=== PATIENT | female | born 1995 | race Caucasian/White ===

== ENCOUNTER → 2017-04-16 | Outpatient (CLI) | payer OTHER ==
[2017-04-16 18:56] LABS: BASO % 0.2 % (0.0-1.0); EOS % 0.3 % (0.0-3.0); HEMATOCRIT 41.3 % (36.0-47.0); HEMOGLOBIN 13.8 g/dl (12.0-16.0); IMMATURE GRANULOCYTE % 0.3 % (0-3.0); LYMPH # 1.4 10^3/uL (1.5-6.5); LYMPH % 14.1 % (24.0-44.0); MEAN CORPUSCULAR HEMOGLOBIN 32.5 pg (27.0-33.0); MEAN CORPUSCULAR HGB CONC 33.4 g/dl (32.0-36.5); MEAN CORPUSCULAR VOLUME 97.2 fl (80.0-96.0); MONO # 0.4 10^3/uL (0.0-0.8); MONO % 4.1 % (0.0-5.0); NEUTROPHILS # 7.8 10^3/uL (1.8-7.7); PLATELET COUNT, AUTOMATED 301 10^3/uL (150-450); RED BLOOD COUNT 4.25 10^6/uL (4.00-5.40); RED CELL DISTRIBUTION WIDTH 12.4 % (11.5-14.5); WHITE BLOOD COUNT 9.7 10^3/uL (4.0-10.0)
[2017-04-17 00:40] LABS: CHLAMYDIA DNA AMPLIFICATION NEGATIVE (NEGATIVE)
[2017-04-17 06:52] LABS: GC DNA AMPLIFICATION NEGATIVE (NEGATIVE)
[2017-04-17 10:38] LABS: RUBELLA IgG QUALITATIVE IMMUNE (IMMUNE)
[2017-04-17 11:04] LABS: HEPATITIS B SURFACE ANTIGEN NEGATIVE (NEGATIVE)
[2017-04-17 11:08] LABS: HEPATITIS C VIRUS ABY INDEX < 0.0 INDEX (<0.8)
[2017-04-17 11:08] LABS: HIV 1&2 SCREEN CENTAUR NEGATIVE (NEGATIVE)
== END ==
LOC: M LRY 11:40
DX: Z34.81 Encounter for supervision of other normal pregnancy, first trimester (principal); Z3A.08 8 weeks gestation of pregnancy

== ENCOUNTER → 2017-06-24 | Outpatient (CLI) | payer OTHER | LOC: M RAD 12:07 | DX: Z34.82 Encounter for supervision of other normal pregnancy, second trimester (principal); Z3A.19 19 weeks gestation of pregnancy ==

== ENCOUNTER → 2017-10-25 | Outpatient (REF) | payer OTHER | LOC: M LAB REF 11:10 | DX: Z34.83 Encounter for supervision of other normal pregnancy, third trimester (principal) ==

== ENCOUNTER → 2017-10-28 | Outpatient (REF) | payer OTHER | LOC: M LAB REF 13:12 | DX: Z34.83 Encounter for supervision of other normal pregnancy, third trimester (principal) ==

== ENCOUNTER 2017-11-22 03:06 | Inpatient (IN) | payer OTHER ==
[2017-11-22 04:01] LABS: HEMATOCRIT 36.7 % (36.0-47.0); HEMOGLOBIN 12.3 g/dl (12.0-15.5); MEAN CORPUSCULAR HEMOGLOBIN 30.7 pg (27.0-33.0); MEAN CORPUSCULAR HGB CONC 33.5 g/dl (32.0-36.5); MEAN CORPUSCULAR VOLUME 91.5 fl (80.0-96.0); PLATELET COUNT, AUTOMATED 226 10^3/uL (150-450); RED BLOOD COUNT 4.01 10^6/uL (4.00-5.40); RED CELL DISTRIBUTION WIDTH 13.5 % (11.5-14.5)
[2017-11-22] MEDS ORDERED: OXYTOCIN 30 UNITS IN 0.9% NaCl 500ML IV BAG (J2590) As Ordered (04:21)
[2017-11-22] MEDS: OXYTOCIN DRIP 30 UNITS in APPROPRIATE DILUENT 1 EA IV ×2 (08:01→09:37)
[2017-11-22] MEDS ORDERED: LR 1,000 ML IV (08:20)
[2017-11-22] MEDS ORDERED: RHOGAM 300 MCG (1500 IU) INJ (J2790) IM (08:30)
[2017-11-22] MEDS ORDERED: IBUPROFEN 800 MG TAB PO (08:30)
[2017-11-22] MEDS ORDERED: PROMETHAZINE 25 MG TAB PO (08:30)
[2017-11-22] MEDS ORDERED: DOCUSATE SODIUM 100 MG CAP PO (08:30)
[2017-11-22] MEDS ORDERED: METHYLERGONOVINE MALEATE 0.2 MG TAB PO (08:30)
[2017-11-22] MEDS ORDERED: ONDANSETRON 4MG/2ML VIAL (J2405) IV (08:30)
[2017-11-22] MEDS ORDERED: MEASLES,MUMPS,RUBELLA VACCINE INJ (MMR-II) (90707) SC (08:30)
[2017-11-22] MEDS: PRENATAL VITAMINS CHEWABLE TABLET PO (10:59)
[2017-11-22] MEDS: ACETAMINOPHEN 500 MG TAB PO (10:59)
[2017-11-22] MEDS: DIBUCAINE 1% OINTMENT 30GM TOP (10:59)
[2017-11-23] MEDS: ACETAMINOPHEN 500 MG TAB PO (00:34)
[2017-11-23] MEDS: PRENATAL VITAMINS CHEWABLE TABLET PO (09:00)
[2017-11-23] MEDS: INFLUENZA QUADRIVALENT PF VACCINE 0.5ML SYRINGE (90686) IM (09:00)
[2017-11-23] MEDS ORDERED: ADACEL/BOOSTRIX VACCINE (DIPHTH/PERTUSS/ACELL/TETANUS)0.5ML SYR (90715) IM (09:00)
== END 2017-11-23 10:15 | disposition home or self-care (01) | DRG 775 ==
LOC: M LDO 03:06 → M LDI 03:38 → M OBS 10:46
PROVIDERS: Obstetrics & Gynecology
PROC: 10E0XZZ Delivery of Products of Conception, External Approach (ICD-10-PCS; principal; 2017-11-22)
DX: O80 Encounter for full-term uncomplicated delivery (principal); Z3A.40 40 weeks gestation of pregnancy; Z37.0 Single live birth

== ENCOUNTER → 2018-02-11 | Outpatient (REF) | payer OTHER ==
[2018-02-11 16:17] LABS: CHLAMYDIA DNA AMPLIFICATION NEGATIVE (NEGATIVE); GC DNA AMPLIFICATION NEGATIVE (NEGATIVE)
== END ==
LOC: M LAB REF 13:10
DX: Z11.3 Encounter for screening for infections with a predominantly sexual mode of transmission (principal); Z12.4 Encounter for screening for malignant neoplasm of cervix